=== PATIENT | female | born 1950 | race Caucasian/White ===

== ENCOUNTER 2018-01-23 10:15 | Inpatient (IN) | payer OTHER, BC ==
[~2018-01-23] VITALS: Ht 170.2 cm; Wt 69.9 kg
[2018-01-23] MEDS ORDERED: NASONEX17 GM BOTH NARES (14:41)
[2018-01-23] MEDS ORDERED: CALCIUM 500 MG1 EACH PO (14:41)
[2018-01-23] MEDS ORDERED: ASCORBIC ACID500 M3 PO (14:41)
[2018-01-23] MEDS ORDERED: ONCE DAILY1 EACH PO (14:42)
[2018-01-23] MEDS ORDERED: PROCTOZONE-HC30 GM PR (14:42)
[2018-01-23] MEDS ORDERED: PROTOPIC PO (14:43)
[2018-01-23] MEDS ORDERED: [UNRECOGNIZED DRUG - OTHER] PO (14:43)
[2018-01-23] MEDS ORDERED: ESTRACE42.5 GM VG (14:43)
[2018-01-27 06:27] VITALS: BP 122/69
[2018-01-27 13:00] VITALS: BP 91/55
[2018-01-27 19:28] VITALS: BP 100/55
[2018-01-27 23:43] VITALS: BP 100/53
[2018-01-28 03:43] VITALS: BP 98/55
[2018-01-28 06:40] LABS: BASOPHIL (%) 0.1 % (0-1); EOSINOPHIL (%) 0.3 % (0-5); HEMATOCRIT 32.7 % (36.0-46.0); HEMOGLOBIN 11.3 G/DL (11.9-15.5); IMMATURE GRANULOCYTE (%) 0.3 % (0.0-0.7); LYMPHOCYTE (%) 15.5 % (15-42); LYMPHOCYTE COUNT 1.1 K/uL (1.0-2.8); MCH 32.3 PG (29.0-34.0); MCHC 34.6 G/DL (30.0-36.0); MCV 93.4 FL (83-99); MONOCYTE (%) 9.4 % (3-12); MONOCYTE COUNT 0.7 K/uL (0-0.8); NEUTROPHIL (%) 74.4 % (45-76); NEUTROPHIL COUNT 5.2 K/uL (1.8-6.4); PLATELET COUNT 146 K/uL (156-360); RBC DIS.WIDTH-CV 12.2 % (11.8-14.6); RBC DIS.WIDTH-SD 41.9 % (39-53); WHITE BLOOD COUNT 6.9 K/uL (4.1-10.2)
[2018-01-28 07:01] LABS: CHLORIDE 107 MEQ/L (99-109); CREATININE 0.5 MG/DL (0.6-1.3); GFR ESTIMATE (CALCULATED) > 59 mL/min/; GLUCOSE 91 mg/dL (70-99); POTASSIUM 4.2 MEQ/L (3.7-5.4); SODIUM 141 MEQ/L (136-147); UREA NITROGEN (BUN) 9 mg/dL (9-23)
[2018-01-28 07:47] VITALS: BP 98/52
[2018-01-28 11:27] VITALS: BP 97/52
[2018-01-28 15:19] VITALS: BP 109/55
[2018-01-28 19:44] VITALS: BP 112/59
[2018-01-28 23:59] VITALS: BP 197/55
[2018-01-29 03:46] VITALS: BP 100/55
[2018-01-29 05:44] LABS: BASOPHIL (%) 0.4 % (0-1); EOSINOPHIL COUNT 0.1 K/uL (0-0.3); HEMATOCRIT 35.1 % (36.0-46.0); HEMOGLOBIN 11.7 G/DL (11.9-15.5); IMMATURE GRANULOCYTE (%) 0.1 % (0.0-0.7); LYMPHOCYTE (%) 12.8 % (15-42); LYMPHOCYTE COUNT 0.9 K/uL (1.0-2.8); MCH 31.8 PG (29.0-34.0); MCHC 33.3 G/DL (30.0-36.0); MCV 95.4 FL (83-99); MONOCYTE (%) 8.3 % (3-12); MONOCYTE COUNT 0.6 K/uL (0-0.8); NEUTROPHIL (%) 77.4 % (45-76); NEUTROPHIL COUNT 5.5 K/uL (1.8-6.4); PLATELET COUNT 148 K/uL (156-360); RBC DIS.WIDTH-CV 12.2 % (11.8-14.6); RBC DIS.WIDTH-SD 42.5 % (39-53); RED BLOOD COUNT 3.68 M/uL (3.80-5.20); WHITE BLOOD COUNT 7.1 K/uL (4.1-10.2)
[2018-01-29 06:15] LABS: CHLORIDE 103 MEQ/L (99-109); CREATININE 0.6 MG/DL (0.6-1.3); GFR ESTIMATE (CALCULATED) > 59 mL/min/; GLUCOSE 106 mg/dL (70-99); POTASSIUM 3.6 MEQ/L (3.7-5.4); SODIUM 139 MEQ/L (136-147); UREA NITROGEN (BUN) 9 mg/dL (9-23)
[2018-01-29 07:56] VITALS: BP 106/56
[2018-01-29 12:48] VITALS: BP 108/54
[2018-01-29 16:07] VITALS: BP 117/59
== END 2018-01-29 16:00 | disposition home or self-care (01) | DRG 743 ==
LOC: 2SOUTH → ENRESERV 01-26 21:01 → 2EASTP 01-27 05:31 → 2SOUTH 01-27 05:31 → ENRESERV 01-27 09:19 → 2EASTP 01-27 12:51 → 2SOUTH 01-27 15:11 → 2EASTP 01-29 16:00
PROVIDERS: Obstetrics & Gynecology Gynecology
PROC: 0UT20ZZ Resection of Bilateral Ovaries, Open Approach (ICD-10-PCS; principal; 2018-01-27)
PROC: 0TJB8ZZ Inspection of Bladder, Via Natural or Artificial Opening Endoscopic (ICD-10-PCS; 2018-01-27)
PROC: 0USG0ZZ Reposition Vagina, Open Approach (ICD-10-PCS; 2018-01-27)
PROC: 0JUC0JZ Supplement of Pelvic Region Subcutaneous Tissue and Fascia with Synthetic Substitute, Open Approach (ICD-10-PCS; 2018-01-27)
PROC: 0UT90ZL Resection of Uterus, Supracervical, Open Approach (ICD-10-PCS; 2018-01-27)
PROC: 0UT70ZZ Resection of Bilateral Fallopian Tubes, Open Approach (ICD-10-PCS; 2018-01-27)
DX: N81.4 Uterovaginal prolapse, unspecified (principal); Z88.6 Allergy status to analgesic agent
CPT/HCPCS: 80048; 85025; 87086; 88307; 93000; C1781; J0330; J0690; J1100; J1170; J1650; J2001; J2405; J2710; J2765; J2795; J3010; J3475; J7120; J7643

== ENCOUNTER → 2018-01-26 | Outpatient (CLI) | payer MEDICARE, BC ==
[~2018-01-26] MED LIST: ASCORBIC ACID500 M3 PO; CALCIUM 500 MG1 EACH PO; ESTRACE42.5 GM VG; NASONEX17 GM BOTH NARES; ONCE DAILY1 EACH PO; PROCTOZONE-HC30 GM PR; PROTOPIC PO; [UNRECOGNIZED DRUG - OTHER] PO
== END | disposition home or self-care (01) ==
LOC: CDC 08:18
DX: Z01.810 Encounter for preprocedural cardiovascular examination (principal)
CPT/HCPCS: 93000